=== PATIENT | male | born 1990 | race Caucasian/White ===

== ENCOUNTER 2018-01-20 14:44 | Emergency (ER) | payer OTHER ==
--- NOTE | 2018-01-20 16:11 | CPEKG ---
Heart Rate: 69 RR Interval: 870 P-R Interval: 144 QRSD Interval: 118 QT Interval: 416 QTC Interval: 446 P Mcdonald: 27 QRS Mcdonald: 24 T Wave Mcdonald: 14 EKG Severity - ABNORMAL ECG - EKG Impression: SINUS RHYTHM EKG Impression: NONSPECIFIC INTRAVENTRICULAR CONDUCTION DELAY Electronically Signed By: Hill Camargo 22-Jan-2018 08:02:24
--- NOTE | 2018-01-20 16:26 | EDPHY ---
General - History Smoking Status: Never smoked Time Seen by Provider: 01/20/18 16:16 Narrative: CHIEF COMPLAINT: Dizzy, weak, sweaty HISTORY OF PRESENT ILLNESS: Patient presents with complaints of feeling dizzy, sweaty, weak. This happened approximately 2 hr ago. This was after having walked while at work. He began feeling sweaty and lightheaded. He said he felt very shaky. No unilateral complaints but no difficulty with speech. No headache. He states he sat down but did not have any resolution, thus he went to urgent care with co-worker. He was evaluated briefly there and sent here for higher level of care. He ate something in route has had significantly better. He says he did not using breakfast or lunch. He had no chest pain or shortness of breath during this. No loss of consciousness. Has had 1 similar episode in the past revealed his blood sugar was low. No other associated complaints or modifying factors. REVIEW OF SYSTEMS: Ten systems reviewed and are negative unless otherwise noted in the HPI PCP: Dr. Mohr SPECIALISTS: None PAST MEDICAL HISTORY: Uncomplicated PAST SURGICAL HISTORY: No recent surgeries SOCIAL HISTORY: Nonsmoker. Lives here independently. Works as an functional support analyst FAMILY HISTORY: Noncontributory EXAMINATION General Appearance: Alert, no distress. Well-developed well-nourished Head: normocephalic, atraumatic Eyes: Pupils equal and round, no conjunctival pallor or injection ENT, Mouth: Mucous membranes moist Neck: Normal inspection, supple, non-tender. Midline trachea no meningismus Respiratory: Lungs are clear to auscultation Cardiovascular: Regular rate and rhythm Gastrointestinal: Abdomen is soft and nontender Back: non-tender, no bony abnormalities Neurological: GCS 15. A&O, nonfocal, normal gait. No pronator drift. Normal [id number]. Skin: Warm and dry, no rash. Grossly intact Extremities: Nontender, no pedal edema Psychiatric: Mood and affect normal DIFFERENTIAL DIAGNOSES: Including but not limited to orthostasis, dehydration, hypoglycemia, weakness, electrolyte disturbance, malignant dysrhythmia MDM: 4:20 p.m. Acute episode of feeling dizzy, off balance, diaphoretic and shaky just after walking few hours ago. He is asymptomatic this time. He is awake and alert no acute distress. His vital signs and orthostatic vital signs are within normal limits with mild hypertension. Patient does have a history of diabetes in the family, and he did skip 2 meals today before this walk. I have ordered laboratory studies and fingerstick blood sugar. He has an EKG that has been obtained and reviewed Dr. Mechelle buck. He is resting comfortably in no acute distress, ambulatory without symptoms. 4:45 p.m. Notified that patient has FSBS is 77. Laboratory studies pending 5:10 p.m. Chemistry is unremarkable. Patient re-evaluated. He is feeling well. He remained asymptomatic. He also feel this is related to lack of food and his low blood sugar. He has had this in the past. He has ambulated in the emergency department with no difficulty or need for assistance. 5:25 p.m. I discussed the case with Dr. Mechelle Bragg . She is in agreement with the plan. Discharged home stable condition. We discuss further food intake tonight. We discussed monitoring his blood sugar with his mother's monitor at home. We discussed follow up with primary care physician. We discussed ED precautions for any return of symptoms, loss of conscious, chest pain, sweating. He is comfortable this plan and discharged home stable condition EKG interpretation: Dr. Mechelle Bragg SUPERVISION: Patient was independently examined, but I discussed the case with my secondary supervising physician Dr. Mechelle Bragg ([facility]) Discussion: The patient was evaluated and managed by the Physician Web Design Instructor. I discussed the patient's presentation and course with the physician personal care assistant and agree with the evaluation. My co-signature indicates that I have reviewed this chart and I agree with the findings and plan of care as documented. I am the secondary supervising physician. (Mechelle Bragg) - Objective Vital Signs: Initial Vital Signs Temperature (C) 36.3 C 01/20/18 14:49 Heart Rate 78 01/20/18 14:49 Respiratory Rate 16 01/20/18 14:49 Blood Pressure 136/86 H 01/20/18 14:49 O2 Sat (%) 98 01/20/18 14:49 O2 Delivery Mode Room Air Allergies/Adverse Reactions: No Known Allergies Allergy (Unverified 01/20/18 14:47) Home Medications: Medication Instructions Recorded Citalopram 01/20/18 Ibuprofen 01/20/18 Otc Antihistamine 01/20/18 Laboratory Results: Laboratory Results 01/20/18 16:40 01/20/18 16:40 Point of Care Test Results: Chemistry 01/20/18 16:44 POC Glucose 77 mg/dL mg/dL (70-100) Departure - Departure Disposition: Home, Routine, Self-Care Clinical Impression: Light-headed feeling, Diaphoresis Condition: Good Instructions: Non-diabetic Hypoglycemia (ED) Additional Instructions: 1. Continue to eat more regularly 2. Follow up with primary care physician 3. Return here for any return of symptoms Referrals: Luis Miguel Mohr MD [Non Staff and Non MD] - As per Instructions Gilberto Oropeza MD [Medical Doctor] - As per Instructions
[2018-01-20 16:49] LABS: PLATELET COUNT 239 10^3/uL (150-400)
[2018-01-20 17:59] VITALS: BP 128/85
== END 2018-01-20 17:57 | disposition home or self-care (01) ==
DX: R42 Dizziness and giddiness (principal); R61 Generalized hyperhidrosis